=== PATIENT | female | born 1950 | race Caucasian/White ===

== ENCOUNTER → 2018-01-12 | Outpatient (CLI) | payer MEDICARE ==
[~2018-01-12] MED LIST: ALBU90OI INH; CYCL10; DIAZ5 PO; ESTR2; FEXPSEER; FLUSAL2505 IH; ISOMON30 PO; LORA.5 PO; ONDA4ODT MM; OXYACE5T; OXYACE5T PO; OXYACE7.5T PO; OXYC10ER PO; PROACE100 PO; ROSU10TA PO
[2018-01-12 15:27] LABS: Source, Urine Catheter
[2018-01-12 17:27] LABS: Appearance, Urine Clear (Clear); Bilirubin, Urine Neg (Neg); Blood, Urine Neg (Neg); Color, Urine Yellow (P-Yellow); Glucose Qualitative, Urine Neg (Neg); Ketones, Urine Neg (Neg); Leukocyte Esterase, Urine Neg (Neg); Nitrite, Urine Neg (Neg); Protein, Urine Neg (Neg); Specific Gravity, Urine 1.025 (1.003-1.022); Urobilinogen, Urine NORM (Normal)
== END | disposition home or self-care (01) ==
LOC: OLS 15:19
PROVIDERS: Nurse Practitioner Women's Health
DX: R30.0 Dysuria (principal)
CPT/HCPCS: 81003

== ENCOUNTER → 2019-01-03 | Outpatient (CLI) | payer MEDICARE | END | disposition home or self-care (01) | LOC: LAB 18:23 → LAB SHORT 18:23 | DX: N89.8 Other specified noninflammatory disorders of vagina (principal) | CPT/HCPCS: 87070; 87077; 87147; 87186; 87205 ==

== ENCOUNTER → 2019-09-04 | Outpatient (CLI) | payer MEDICARE | END | disposition home or self-care (01) | LOC: LAB SHORT 09:55 → LAB EV 09:55 | DX: R35.0 Frequency of micturition (principal) | CPT/HCPCS: 87077; 87086; 87186 ==

== ENCOUNTER → 2019-10-08 | Outpatient (CLI) | payer MEDICARE ==
[2019-10-10 14:06] LABS: HPV 16 Negative (Negative); HPV 18 Negative (Negative); HPV OTHER HR TYPES Negative (Negative)
== END | disposition home or self-care (01) ==
LOC: LAB 15:42 → LAB SHORT 15:42
PROVIDERS: Nurse Practitioner Women's Health
DX: Z12.72 Encounter for screening for malignant neoplasm of vagina (principal); Z91.89 Other specified personal risk factors, not elsewhere classified
CPT/HCPCS: 87624; G0123

== ENCOUNTER 2021-08-05 13:03 | Day surgery (SDC) | payer OTHER ==
[~2021-08-05] VITALS: Ht 165.1 cm; Wt 70.4 kg
[2021-08-05] MEDS ORDERED: OMEP20ER PO (15:59)
[2021-08-05] MEDS ORDERED: Norco 5-325 Ta1 EACH PO (16:29)
[2021-08-05] MEDS ORDERED: VAGIFEM10 MCG VAG (16:29)
[2021-08-05] MEDS ORDERED: LIDO5TO TOP (16:30)
[2021-08-05] MEDS ORDERED: OXYB5 PO (16:30)
[2021-08-05] MEDS ORDERED: MUPIROCIN15 GM TP (16:30)
[2021-08-05] MEDS ORDERED: CLEM1.34 (16:30)
[2021-08-05] MEDS ORDERED: CLOB.05TO (16:30)
[2021-08-05] MEDS ORDERED: IPRAT-ALBUT 0.5-3 ML IH (16:31)
[2021-08-05] MEDS ORDERED: IBUPROFEN200 M1 PO (16:31)
[2021-08-05] MEDS ORDERED: GABA100 PO (16:31)
[2021-08-05] MEDS ORDERED: POTASSIUM GLUCO99 M1 PO (16:32)
--- NOTE | 2021-08-05 16:34 | NUR ---
08/05/21 1634 QUANG MACEDO INTRASCALENE NERVE BLOCK COMPLETED ON R SIDE BY DR. MUÑOZ
--- NOTE | 2021-08-05 17:30 | NUR ---
08/05/21 1730 Skyla Garcia CARE AND CHARTING COMPLETED BY DANY DEL RIO. DANY DEL RIO'S COMPUTER ACCESS IS NOT AVAILABLE AT THIS TIME
== END 2021-08-05 19:03 | disposition home or self-care (01) ==
LOC: ORSCSDS 13:03
PROVIDERS: Orthopaedic Surgery
PROC: 0RNJ4ZZ Release Right Shoulder Joint, Percutaneous Endoscopic Approach (ICD-10-PCS; principal; 2021-08-05 14:30)
PROC: 0LM14ZZ Reattachment of Right Shoulder Tendon, Percutaneous Endoscopic Approach (ICD-10-PCS; principal; 2021-08-05 14:30)
DX: M75.121 Complete rotator cuff tear or rupture of right shoulder, not specified as traumatic (principal); S46.001A Unspecified injury of muscle(s) and tendon(s) of the rotator cuff of right shoulder, initial encounter; M75.21 Bicipital tendinitis, right shoulder; M75.41 Impingement syndrome of right shoulder; M19.011 Primary osteoarthritis, right shoulder; I10 Essential (primary) hypertension; J44.9 Chronic obstructive pulmonary disease, unspecified; K21.9 Gastro-esophageal reflux disease without esophagitis; Z79.899 Other long term (current) drug therapy
CPT/HCPCS: A9270; C1713; J0171; J1100; J2001; J2250; J2370; J2405; J2704; J3010

== ENCOUNTER → 2021-11-10 | Outpatient (CLI) | payer OTHER ==
[~2021-11-10] MED LIST changes: +CLEM1.34; +CLOB.05TO; +GABA100 PO; +IBUPROFEN200 M1 PO; +IPRAT-ALBUT 0.5-3 ML IH; +LIDO5TO TOP; +MUPIROCIN15 GM TP; +Norco 5-325 Ta1 EACH PO; +OMEP20ER PO; +OXYB5 PO; +POTASSIUM GLUCO99 M1 PO; +VAGIFEM10 MCG VAG
[2021-11-12 13:45] LABS: Stool Occult Bld Immuno 1 Negative (NEGATIVE)
== END | disposition home or self-care (01) ==
LOC: LAB SHORT 16:50
PROVIDERS: Family Medicine
DX: Z12.11 Encounter for screening for malignant neoplasm of colon (principal)
CPT/HCPCS: G0328

== ENCOUNTER → 2022-08-10 | Outpatient (CLI) | payer OTHER | END | disposition home or self-care (01) | LOC: LAB 12:00 → LAB SHORT 12:00 | PROVIDERS: Family Medicine | DX: Z51.81 Encounter for therapeutic drug level monitoring (principal); Z79.899 Other long term (current) drug therapy | CPT/HCPCS: G0480 ==

== ENCOUNTER → 2022-11-17 | Outpatient (CLI) | payer OTHER | LOC: LAB 15:34 → LAB SHORT 15:34 | PROVIDERS: Family Medicine | DX: G89.4 Chronic pain syndrome (principal) | CPT/HCPCS: G0480 ==

== ENCOUNTER → 2023-09-07 | Outpatient (CLI) | payer OTHER ==
[2023-09-07 12:57] LABS: Hemoglobin 13.1 g/dL (11.5-16.0); Mean Corpuscular HGB 26.1 pg (26.0-34.0); Mean Corpuscular Volume 82 fL (80-100); Mean Platelet Volume 10.4 fL (9.1-12.4); Platelet Count 243 K/mm3 (150-400); RDW Standard Deviation 38.5 fL (35.1-46.3); Red Blood Cell Count 5.02 M/mm3 (3.80-5.20)
[2023-09-07 13:06] LABS: Albumin, Blood 3.6 g/dL (3.4-5.0); Bilirubin, Total 0.6 mg/dL (0.1-1.0); Bun/Creatinine Ratio 20.2 (12.0-20.0); Calcium, Blood 9.6 mg/dL (8.5-10.1); Creatinine, Blood 0.84 mg/dL (0.40-1.00); Globulin, Blood 3.6 g/dL (2.2-4.0); Potassium, Blood 3.8 mmol/L (3.5-5.5); Total Protein, Blood 7.2 g/dL (6.4-8.2)
[2023-09-07 13:48] LABS: BASOPHILS ABSOLUTE MAN 0.07 K/mm3 (0.00-0.23); BASOPHILS PERCENT MAN 1 % (0-2); EOSINOPHILS ABSOLUTE MAN 0.28 K/mm3 (0.00-0.68); EOSINOPHILS PERCENT MAN 4 % (0-6); LYMPHOCYTES % ATYPICAL MANUAL 2 % (0-0); LYMPHOCYTES ABSOLUTE MAN 1.49 K/mm3 (0.84-5.20); LYMPHOCYTES PERCENT MAN 19 % (21-46); MONOCYTES ABSOLUTE MAN 0.78 K/mm3 (0.16-1.47); MONOCYTES PERCENT MAN 11 % (4-13); NEUTROPHILS ABSOLUTE MAN 4.47 K/mm3 (1.96-9.15); SEG NEUTROPHILS PERCENT MAN 63 % (41-73); TOTAL CELLS COUNTED 100
== END | disposition home or self-care (01) ==
LOC: LAB SHORT 12:50 → LAB 12:50
PROVIDERS: Physician Assistant Surgical
DX: R10.13 Epigastric pain (principal)
CPT/HCPCS: 80053; 83690; 85025

== ENCOUNTER → 2023-09-08 | Outpatient (CLI) | payer OTHER ==
[2023-09-08 18:20] LABS: Adenovirus F 40/41 Not Detected (NOT DETECT); Astrovirus Not Detected (NOT DETECT); Campylobacter Sp Detected (NOT DETECT); Cryptosporidium Not Detected (NOT DETECT); Cyclospora Cayetanensis Not Detected (NOT DETECT); E. Coli O157 Not Detected (NOT DETECT); Entamoeba Histolytica Not Detected (NOT DETECT); Enteroaggregative E. coli-EAEC Not Detected (NOT DETECT); Enteropathogenic E. coli-EPEC Detected (NOT DETECT); Enterotoxigenic E. coli-ETEC Not Detected (NOT DETECT); Giardia Lamblia Not Detected (NOT DETECT); Norovirus GI/GII Not Detected (NOT DETECT); Plesiomonas Shigelloides Not Detected (NOT DETECT); Rotavirus A Not Detected (NOT DETECT); Salmonella Sp Not Detected (NOT DETECT); Sapovirus Not Detected (NOT DETECT); Shiga Toxin-prod E. coli-STEC Not Detected (NOT DETECT); Shigella/Enteroin E. coli-EIEC Not Detected (NOT DETECT); Vibrio Cholerae Not Detected (NOT DETECT); Vibrio Sp Not Detected (NOT DETECT); Yersinia Enterocolitica Not Detected (NOT DETECT)
== END ==
LOC: LAB SHORT 08:15 → LAB 08:15
PROVIDERS: Physician Assistant Surgical
DX: R19.7 Diarrhea, unspecified (principal)
CPT/HCPCS: 87507

== ENCOUNTER → 2024-08-29 | Outpatient (CLI) | payer OTHER ==
[2024-08-29 15:52] LABS: Stool Occult Bld Immuno 1 Positive (NEGATIVE)
== END ==
LOC: LAB SHORT 06:30 → LAB 06:30
PROVIDERS: Family Medicine
DX: K92.1 Melena (principal)
CPT/HCPCS: 82274

== ENCOUNTER → 2024-10-31 | Outpatient (CLI) | payer OTHER | LOC: LAB 13:35 → LAB SHORT 13:35 | DX: N39.0 Urinary tract infection, site not specified (principal) | CPT/HCPCS: 87086; 87147 ==

== ENCOUNTER → 2024-11-20 | Outpatient (CLI) | payer OTHER ==
[2024-11-20 10:18] LABS: BASOPHILS ABSOLUTE AUTO 0.03 K/mm3 (0.00-0.23); BASOPHILS PERCENT AUTO 1 % (0-2); EOSINOPHILS ABSOLUTE AUTO 0.05 K/mm3 (0.00-0.68); EOSINOPHILS PERCENT AUTO 2 % (0-6); Hematocrit 35.4 % (33.0-51.0); Hemoglobin 11.5 g/dL (11.5-16.0); IMMATURE GRAN ABSOLUTE AUTO 0.01 K/mm3 (0.00-0.10); IMMATURE GRAN PERCENT AUTO 0 % (0-1); LYMPHOCYTES ABSOLUTE AUTO 0.81 K/mm3 (0.84-5.20); LYMPHOCYTES PERCENT AUTO 35 % (21-46); MONOCYTES ABSOLUTE AUTO 0.27 K/mm3 (0.16-1.47); MONOCYTES PERCENT AUTO 12 % (4-13); Mean Corpuscular HGB 26.3 pg (26.0-34.0); Mean Corpuscular HGB Conc 32.5 g/dL (31.5-36.5); Mean Corpuscular Volume 81 fL (80-100); Mean Platelet Volume 10.2 fL (9.1-12.4); NEUTROPHILS ABSOLUTE AUTO 1.18 K/mm3 (1.96-9.15); NEUTROPHILS PERCENT AUTO 50 % (41-73); Platelet Count 194 K/mm3 (150-400); RDW Coefficient Variation 13.2 % (11.7-14.2); RDW Standard Deviation 38.5 fL (35.1-46.3); Red Blood Cell Count 4.37 M/mm3 (3.80-5.20); White Blood Cell Count 2.35 K/mm3 (4.00-11.30)
[2024-11-20 10:35] LABS: Albumin, Blood 3.3 g/dL (3.4-5.0); Bilirubin, Total 0.4 mg/dL (0.1-1.0); Bun/Creatinine Ratio 22.5 (12.0-20.0); Calcium, Blood 9.4 mg/dL (8.5-10.1); Creatinine, Blood 0.89 mg/dL (0.40-1.00); Globulin, Blood 3.3 g/dL (2.2-4.0); Potassium, Blood 3.4 mmol/L (3.5-5.5); Total Protein, Blood 6.6 g/dL (6.4-8.2)
== END ==
LOC: LAB SHORT 10:14 → LAB 10:14
PROVIDERS: Physician Assistant
DX: N39.0 Urinary tract infection, site not specified (principal); R53.83 Other fatigue
CPT/HCPCS: 80053; 85025; 87086

== ENCOUNTER → 2024-11-25 | Outpatient (CLI) | payer OTHER ==
[2024-11-25 11:49] LABS: BASOPHILS ABSOLUTE AUTO 0.04 K/mm3 (0.00-0.23); BASOPHILS PERCENT AUTO 1 % (0-2); EOSINOPHILS ABSOLUTE AUTO 0.16 K/mm3 (0.00-0.68); EOSINOPHILS PERCENT AUTO 3 % (0-6); Hemoglobin 12.3 g/dL (11.5-16.0); IMMATURE GRAN ABSOLUTE AUTO 0.03 K/mm3 (0.00-0.10); IMMATURE GRAN PERCENT AUTO 1 % (0-1); LYMPHOCYTES ABSOLUTE AUTO 1.51 K/mm3 (0.84-5.20); LYMPHOCYTES PERCENT AUTO 24 % (21-46); MONOCYTES ABSOLUTE AUTO 0.58 K/mm3 (0.16-1.47); MONOCYTES PERCENT AUTO 9 % (4-13); Mean Corpuscular HGB Conc 31.5 g/dL (31.5-36.5); Mean Corpuscular Volume 83 fL (80-100); Mean Platelet Volume 9.1 fL (9.1-12.4); NEUTROPHILS ABSOLUTE AUTO 4.08 K/mm3 (1.96-9.15); NEUTROPHILS PERCENT AUTO 64 % (41-73); Platelet Count 303 K/mm3 (150-400); RDW Coefficient Variation 13.2 % (11.7-14.2); RDW Standard Deviation 39.1 fL (35.1-46.3); Red Blood Cell Count 4.73 M/mm3 (3.80-5.20)
[2024-11-25 12:15] LABS: Albumin, Blood 3.8 g/dL (3.4-5.0); Albumin/Globulin Ratio 1.1 (0.8-1.8); Bilirubin, Total 0.5 mg/dL (0.1-1.0); Bun/Creatinine Ratio 25.7 (12.0-20.0); Calcium, Blood 10.1 mg/dL (8.5-10.1); Creatinine, Blood 0.74 mg/dL (0.40-1.00); Globulin, Blood 3.4 g/dL (2.2-4.0); Potassium, Blood 3.5 mmol/L (3.5-5.5); Thyroid Stimulating Hormone 2.281 uIU/mL (0.360-4.800); Total Protein, Blood 7.2 g/dL (6.4-8.2)
== END ==
LOC: LAB 11:44 → LAB SHORT 11:44
PROVIDERS: Family Medicine
DX: R53.83 Other fatigue (principal)
CPT/HCPCS: 80053; 83690; 84443; 84484; 85025

== ENCOUNTER → 2025-02-25 | Outpatient (CLI) | payer OTHER | LOC: LAB SHORT 15:10 → LAB 15:10 | DX: R30.0 Dysuria (principal) | CPT/HCPCS: 87086 ==

== ENCOUNTER → 2025-05-27 | Outpatient (CLI) | payer OTHER | END | disposition home or self-care (01) | LOC: LAB 17:09 → LAB SHORT 17:09 | DX: R30.0 Dysuria (principal) | CPT/HCPCS: 87077; 87086; 87186 ==

== ENCOUNTER → 2025-06-23 | Outpatient (CLI) | payer OTHER | LOC: LAB SHORT 13:51 → LAB 13:51 | DX: N39.0 Urinary tract infection, site not specified (principal) | CPT/HCPCS: 87077; 87086; 87186 ==

== ENCOUNTER → 2025-09-09 | Outpatient (CLI) | payer OTHER | END | disposition home or self-care (01) | LOC: LAB 12:10 → LAB SHORT 12:10 | DX: J44.9 Chronic obstructive pulmonary disease, unspecified (principal) | CPT/HCPCS: 87070; 87077; 87186; 87205 ==

== ENCOUNTER 2025-09-18 05:32 | Day surgery (SDC) | payer OTHER ==
[2025-09-18] VITALS (8 sets, daily range): BP systolic 113–163; BP diastolic 68–85
[2025-09-18] MEDS ORDERED: Aspir 8181 MG PO (06:28)
[2025-09-18] MEDS ORDERED: Hydrochloroth12.5 MG PO (06:29)
[2025-09-18] MEDS ORDERED: LOSA50 PO (06:29)
[2025-09-18] MEDS ORDERED: METO25ER PO (06:30)
[2025-09-18] MEDS ORDERED: PREG25 PO (06:31)
[2025-09-18] MEDS ORDERED: PREG75 PO (06:31)
[2025-09-18] MEDS ORDERED: ROFL500T (06:32)
[2025-09-18] MEDS ORDERED: TIOT18 INH (06:32)
[2025-09-18] MEDS ORDERED: NS 1,000 ML IV ONE (06:41)
[2025-09-18] MEDS ORDERED: Benzocaine Oral Spray 0.5ML UD ONE (06:55)
--- NOTE | 2025-09-18 07:25 | NUR ---
ASSUMED CARE FROM ANESTHESIA. PT AWAKE AND VERBALIZING WELL.
--- NOTE | 2025-09-18 07:55 | NUR ---
PT VERBALIZED UNDERSTANDING OF WRITTEN AND VERBAL D/C INST. IV REMOVED. PT TAKEN OUT OF THE HRT CENTER VIA W/C.
[2025-09-18] MEDS ORDERED: Lidocaine HCl 2% 20 MG/ML 5ML SYR IV ONE (10:07)
[2025-09-18] MEDS ORDERED: Propofol 10mg/ml 20 ml Vial (Procedural) IV ONE (10:07)
== END 2025-09-18 23:00 | disposition home or self-care (01) ==
LOC: MHTC 05:32
DX: G45.9 Transient cerebral ischemic attack, unspecified (principal); I10 Essential (primary) hypertension; E78.5 Hyperlipidemia, unspecified; E11.9 Type 2 diabetes mellitus without complications; J44.9 Chronic obstructive pulmonary disease, unspecified; Z79.82 Long term (current) use of aspirin; Z79.899 Other long term (current) drug therapy; Z88.1 Allergy status to other antibiotic agents; Z88.2 Allergy status to sulfonamides; Z88.5 Allergy status to narcotic agent; Z88.8 Allergy status to other drugs, medicaments and biological substances; Z91.041 Radiographic dye allergy status
CPT/HCPCS: 93312; 93325; A9270; J2003; J2704; J7030

== ENCOUNTER 2025-09-29 15:19 | Inpatient (IN) | payer OTHER ==
[~2025-09-29] VITALS: Ht 162.6 cm; Wt 78.5 kg
[~2025-09-29 15:19] MED LIST changes: -LEVO750 PO
[2025-09-29] MEDS ORDERED: Magnesium Hydroxide Conc 10 ML UDC PO PRN (16:55)
[2025-09-29] MEDS ORDERED: Ketorolac Tromethamine 15mg Vial IV ONE (17:00)
[2025-09-29] MEDS ORDERED: FLU VACC TS2025(65UP)/MF59C/PF 45 MCG/0.5 ML SYRINGE IM SCH (17:05)
[2025-09-29] MEDS ORDERED: HYDROcodone 5-APAP 325 TAB PO PRN (17:05)
[2025-09-29] MEDS ORDERED: LevoFLOXacin 750 MG/D5W 150ML 150 ML IV SCH (18:00)
[2025-09-29 18:56] VITALS: BP 129/67
[2025-09-29] MEDS ORDERED: Albuterol HFA200 ACT/6.7 GM INH INH PRN (21:45)
[2025-09-29] MEDS ORDERED: NS 1,000 ML IV SCH (22:10)
[2025-09-29] MEDS ORDERED: Ketorolac Tromethamine 15mg Vial IV PRN (22:15)
[2025-09-29] MEDS ORDERED: Tiotropium Bromide 2.5 MCG/ACT MIST INHAL (10 ACT/4 GM) INH SCH (23:35)
[2025-09-29] MEDS ORDERED: Ipratropium/Albuterol SulF 2.5-0.5MG/3 ML Amp INH PRN (23:35)
[2025-09-30 00:04] VITALS: BP 114/51
[2025-09-30 01:23] VITALS: BP 108/50
--- NOTE | 2025-09-30 05:34 | NUR ---
SHIFT SUMMARY PATIENT A&OX4, ABLE TO MAKE NEEDS KNOWN, AFTER BREATHING TREATMENT PATIENT DENIES SOB, CALL LIGHT WITHIN REACH, STILL STATED SOME PRESSURE IN CHEST HOWEVER IT HAS GOTTEN BETTER AND NO ACUTE EVENTS HAPPENED. CALL LIGHT WITHIN REACH, NO DISTRESS NOTED
[2025-09-30 06:25] LABS: BASOPHILS ABSOLUTE AUTO 0.03 K/mm3 (0.00-0.23); BASOPHILS PERCENT AUTO 0 % (0-2); EOSINOPHILS ABSOLUTE AUTO 0.19 K/mm3 (0.00-0.68); EOSINOPHILS PERCENT AUTO 2 % (0-6); Hematocrit 31.8 % (33.0-51.0); Hemoglobin 9.9 g/dL (11.5-16.0); IMMATURE GRAN ABSOLUTE AUTO 0.05 K/mm3 (0.00-0.10); IMMATURE GRAN PERCENT AUTO 1 % (0-1); LYMPHOCYTES ABSOLUTE AUTO 1.25 K/mm3 (0.84-5.20); LYMPHOCYTES PERCENT AUTO 11 % (21-46); MONOCYTES ABSOLUTE AUTO 0.50 K/mm3 (0.16-1.47); MONOCYTES PERCENT AUTO 5 % (4-13); Mean Corpuscular HGB Conc 31.1 g/dL (31.5-36.5); Mean Corpuscular Volume 83 fL (80-100); NEUTROPHILS ABSOLUTE AUTO 8.93 K/mm3 (1.96-9.15); NEUTROPHILS PERCENT AUTO 82 % (41-73); NRBC ABSOLUTE 0.00 K/mm3 (0.00-0.02); NRBC Auto 0.0 /100 WBC (0.0-0.2); Platelet Count 179 K/mm3 (150-400); RDW Coefficient Variation 13.4 % (11.7-14.2); RDW Standard Deviation 40.9 fL (35.1-46.3)
[2025-09-30 06:51] LABS: Alanine Aminotransfer (ALT/SGP 23.0 U/L (12-78); Albumin, Blood 2.9 g/dL (3.4-5.0); Albumin/Globulin Ratio 1.1 (0.8-1.8); Anion Gap 7.0 mmol/L (3-11); Aspartate Aminotrans (AST/SGOT 14.0 U/L (12-37); Bilirubin, Total 1.1 mg/dL (0.1-1.0); Blood Urea Nitrogen 22.0 mg/dL (8-24); CO2, Blood 22.0 mmol/L (21-32); Calcium, Blood 7.9 mg/dL (8.5-10.1); Chloride, Blood 114.0 mmol/L (98-108); Creatinine, Blood 0.71 mg/dL (0.40-1.00); Globulin, Blood 2.7 g/dL (2.2-4.0); Glucose, Blood 104.0 mg/dL (70-99); Potassium, Blood 3.8 mmol/L (3.5-5.5); Sodium, Blood 139.0 mmol/L (136-145); Total Protein, Blood 5.6 g/dL (6.4-8.2)
[2025-09-30 07:09] VITALS: BP 122/55
[2025-09-30] MEDS ORDERED: Enoxaparin 40 MG/0.4 ML SYR SC SCH (09:00)
[2025-09-30] MEDS ORDERED: NS 1,000 ML IV SCH (10:20)
[2025-09-30 11:09] VITALS: BP 118/51
[2025-09-30] MEDS ORDERED: Formoterol/Mometasone MDI 5/200 mcg 13 GM INH SCH (12:05)
[2025-09-30 15:26] VITALS: BP 121/56
--- NOTE | 2025-09-30 18:43 | NUR ---
SHIFT SUMMARY PT A&OX4, VSS, RA WHILE AWAKE, 2L O2 WHILE SLEEPING, TELE DC TODAY. IND IN ROOM TO BATHROOM. 2 MORE LITERS OF NS ORDERED TODAY, IV ABX CONTINUED. PT PAIN MANAGED WITH PRN PERCOCET. PT PLEASANT AND COOPERATIVE WITH CARE, CALL LIGHT IN REACH.
[2025-09-30 19:50] VITALS: BP 132/53
--- NOTE | 2025-10-01 03:44 | NUR ---
SHIFT SUMMARY: PT IS IND IN ROOM. PT IS AOX4 AND ABLE TO MAKE NEEDS KNOWN. PT MEDICATED 1X THIS SHIFT FOR HEADACHE. PT GIVEN TORADOL AND PT STATED THAT WORKED UPON REASSESSMENT. CALL LIGHT IS IN REACH AND NO ACUTE CHANGES THIS SHIFT.
[2025-10-01 04:08] VITALS: BP 116/56
[2025-10-01 07:34] VITALS: BP 141/69
[2025-10-01] MEDS ORDERED: LEVO750 PO (11:49)
== END 2025-10-01 13:00 | disposition home or self-care (01) | DRG 871 ==
LOC: ER 15:19 → MEDS 16:51
PROVIDERS: ADMIT Family Medicine
DX: A41.9 Sepsis, unspecified organism (principal); J18.9 Pneumonia, unspecified organism; J44.0 Chronic obstructive pulmonary disease with (acute) lower respiratory infection; E87.20 Acidosis, unspecified; K21.9 Gastro-esophageal reflux disease without esophagitis; I10 Essential (primary) hypertension; M54.50 Low back pain, unspecified; G89.29 Other chronic pain; R51.9 Headache, unspecified; K59.00 Constipation, unspecified; M25.552 Pain in left hip; Z99.81 Dependence on supplemental oxygen; Z88.5 Allergy status to narcotic agent; Z88.0 Allergy status to penicillin; Z91.048 Other nonmedicinal substance allergy status; Z88.1 Allergy status to other antibiotic agents; Z91.040 Latex allergy status; Z88.8 Allergy status to other drugs, medicaments and biological substances; Z79.899 Other long term (current) drug therapy; Z79.51 Long term (current) use of inhaled steroids; Z79.82 Long term (current) use of aspirin; Z79.891 Long term (current) use of opiate analgesic; Z98.890 Other specified postprocedural states; Z98.1 Arthrodesis status; Z90.49 Acquired absence of other specified parts of digestive tract; Z90.710 Acquired absence of both cervix and uterus
CPT/HCPCS: 36415; 71046; 80053; 83605; 84484; 85025; 87040; 87086; 94640; 94664; 94760; 94762; 99285-25; A9270; J1885; J1956; J3480; J7030

== ENCOUNTER → 2025-09-29 | Outpatient (CLI) | payer OTHER ==
[~2025-09-29] MED LIST changes: +Aspir 8181 MG PO; +Hydrochloroth12.5 MG PO; +LEVO750 PO; +LOSA50 PO; +METO25ER PO; +PREG25 PO; +PREG75 PO; +ROFL500T; +TIOT18 INH
[2025-09-29 12:01] LABS: BASOPHILS ABSOLUTE AUTO 0.08 K/mm3 (0.00-0.23); BASOPHILS PERCENT AUTO 1 % (0-2); Hematocrit 38.0 % (33.0-51.0); Hemoglobin 12.2 g/dL (11.5-16.0); LYMPHOCYTES ABSOLUTE AUTO 0.86 K/mm3 (0.84-5.20); LYMPHOCYTES PERCENT AUTO 5 % (21-46); MONOCYTES ABSOLUTE AUTO 0.65 K/mm3 (0.16-1.47); MONOCYTES PERCENT AUTO 4 % (4-13); Mean Corpuscular HGB Conc 32.1 g/dL (31.5-36.5); Mean Corpuscular Volume 82 fL (80-100); NRBC ABSOLUTE 0.00 K/mm3 (0.00-0.02); NRBC Auto 0.0 /100 WBC (0.0-0.2); Platelet Count 241 K/mm3 (150-400); RDW Coefficient Variation 13.5 % (11.7-14.2); RDW Standard Deviation 40.0 fL (35.1-46.3)
[2025-09-29 12:03] LABS: EOSINOPHILS ABSOLUTE AUTO 0.04 K/mm3 (0.00-0.68); EOSINOPHILS PERCENT AUTO 0 % (0-6); IMMATURE GRAN ABSOLUTE AUTO 0.30 K/mm3 (0.00-0.10); IMMATURE GRAN PERCENT AUTO 2 % (0-1); NEUTROPHILS ABSOLUTE AUTO 15.65 K/mm3 (1.96-9.15); NEUTROPHILS PERCENT AUTO 89 % (41-73)
[2025-09-29 12:31] LABS: BAND PERCENT MAN 5 % (0-8); EOSINOPHILS ABSOLUTE MAN 0.35 K/mm3 (0.00-0.68); EOSINOPHILS PERCENT MAN 2 % (0-6); LYMPHOCYTES ABSOLUTE MAN 2.28 K/mm3 (0.84-5.20); LYMPHOCYTES PERCENT MAN 13 % (21-46); MONOCYTES ABSOLUTE MAN 0.17 K/mm3 (0.16-1.47); MONOCYTES PERCENT MAN 1 % (4-13); NEUTROPHILS ABSOLUTE MAN 14.76 K/mm3 (1.96-9.15); SEG NEUTROPHILS PERCENT MAN 79 % (41-73)
[2025-09-29 12:59] LABS: Alanine Aminotransfer (ALT/SGP 30.0 U/L (12-78); Albumin, Blood 3.6 g/dL (3.4-5.0); Albumin/Globulin Ratio 1.1 (0.8-1.8); Anion Gap 11.0 mmol/L (3-11); Aspartate Aminotrans (AST/SGOT 20.0 U/L (12-37); Bilirubin, Total 1.1 mg/dL (0.1-1.0); Blood Urea Nitrogen 25.0 mg/dL (8-24); CO2, Blood 24.0 mmol/L (21-32); Calcium, Blood 9.0 mg/dL (8.5-10.1); Chloride, Blood 108.0 mmol/L (98-108); Creatinine, Blood 0.68 mg/dL (0.40-1.00); Globulin, Blood 3.4 g/dL (2.2-4.0); Glucose, Blood 123.0 mg/dL (70-99); Potassium, Blood 3.9 mmol/L (3.5-5.5); Sodium, Blood 139.0 mmol/L (136-145); Total Protein, Blood 7.0 g/dL (6.4-8.2)
== END ==
LOC: LAB 11:54 → LAB SHORT 11:54
PROVIDERS: Physician Assistant Medical
DX: R30.0 Dysuria (principal); N39.0 Urinary tract infection, site not specified; R00.0 Tachycardia, unspecified
CPT/HCPCS: 80053; 83605; 84484; 85025; 87040; 87086

== ENCOUNTER → 2025-10-08 | Outpatient (CLI) | payer OTHER ==
[~2025-10-08] MED LIST changes: +LEVO750 PO
[2025-10-08 20:13] LABS: Bacterial Vaginosis PCR Negative (NEGATIVE); Candida Group, PCR DETECTED (NOT DETECT); Candida glabrata-krusei, PCR NOT DETECTED (NOT DETECT)
== END | disposition home or self-care (01) ==
LOC: LAB SHORT 16:19 → LAB 16:19
PROVIDERS: Physician Assistant
DX: N89.8 Other specified noninflammatory disorders of vagina (principal)
CPT/HCPCS: 81515

== ENCOUNTER → 2025-10-31 | Outpatient (CLI) | payer OTHER | LOC: LAB SHORT 12:46 → LAB 12:46 | DX: J18.9 Pneumonia, unspecified organism (principal) | CPT/HCPCS: 87070; 87205 ==